=== PATIENT | female | born 1950 | race Caucasian/White ===

== ENCOUNTER → 2017-05-02 | Outpatient (CLI) | payer OTHER | LOC: EDSTATUS 14:19 → CIMAGING 14:40 | PROVIDERS: ATTEND Family Medicine | DX: S82.61XA Displaced fracture of lateral malleolus of right fibula, initial encounter for closed fracture (principal) | CPT/HCPCS: 73600-PO; 73620-PO ==

== ENCOUNTER → 2017-05-04 | Outpatient (CLI) | payer OTHER | LOC: FIMAGING 09:24 | PROVIDERS: ATTEND Orthopaedic Surgery | DX: S82.431A Displaced oblique fracture of shaft of right fibula, initial encounter for closed fracture (principal) ==